=== PATIENT | male | born 1985 | race American Indian/Alaskan Native ===

== ENCOUNTER 2019-12-24 11:31 | Emergency (ER) | payer SELFPAY ==
[2019-12-24] MEDS ORDERED: PHENYTOIN 1,000 MG in SODIUM CHLORIDE 0.9% 250ML 250 ML IV ONE (11:46)
[2019-12-24 11:51] VITALS: BP 132/98
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
== END 2019-12-24 13:45 | disposition home or self-care (01) ==
LOC: ED 11:31
DX: G40.909 Epilepsy, unspecified, not intractable, without status epilepticus (principal); F17.200 Nicotine dependence, unspecified, uncomplicated; Z79.899 Other long term (current) drug therapy; Z98.890 Other specified postprocedural states; Z91.19 Patient's noncompliance with other medical treatment and regimen; Z51.81 Encounter for therapeutic drug level monitoring
CPT/HCPCS: 96365; 96366; 99283; J1165; J7050